=== PATIENT | female | born 1990 | race American Indian/Alaskan Native ===

== ENCOUNTER 2016-09-30 10:46 | Emergency (ER) | payer OTHER ==
[2016-09-30 10:51] VITALS: BP 138/71; PULSE 85; TEMP 97; O2SAT 98
[2016-09-30 10:52] VITALS: BMI 34.9
--- NOTE | 2016-09-30 13:17 | ED PDOC ---
HPI: Eye Injury/Pain Time Seen by Provider: 09/30/16 11:44 Chief Complaint (Nursing): Medical Clearance History Per: Patient (states intermittent redness of the right eye that that progressed over the past few days to finding discharge and crust in the lid this morning. She was told by her work that she needs to be medically cleared before returning to work) History/Exam Limitations: no limitations Onset/Duration Of Symptoms: Days Past Medical History Reviewed: Historical Data, Nursing Documentation, Vital Signs Vital Signs: Last Vital Signs Temp 97 F L 09/30/16 10:51 Pulse 85 09/30/16 10:51 Resp BP 138/71 09/30/16 10:51 Pulse Ox 98 09/30/16 10:51 - Medical History PMH: Bronchitis - Surgical History Surgical History: Tonsillectomy - Family History Family History: States: Unknown Family Hx - Home Medications Home Medications: Ambulatory Orders Medication Instructions Recorded Albuterol 1 puff IH Q4 PRN #1 inh 03/15/14 Azithromycin [Zithromax Z-Marvel] 250 mg PO DAILY #1 packet 03/15/14 Benzonatate [Tessalon Perles] 100 mg PO TID #30 sgl 03/15/14 Amoxicillin/Clavulanate [Augmentin 1 tab PO BID #20 tab 07/19/14 875 MG-125 MG] Sulfamethoxazole/Trimethopri 1 tab PO BID #20 tab 07/19/14 [Bactrim Ds 800 mg-160 mg] oxyCODONE/Acetaminophen [Percocet 1 ea PO Q6H PRN #15 tab 07/19/14 5/325 mg Tab] Azithromycin [Zithromax] 250 mg PO DAILY #6 cap 01/04/15 Codeine Phos/Phenyleph HCl/P 5 ml PO Q6H #100 syr 01/04/15 [Phenergan Vc W/Codeine 120 ml] Famotidine [Pepcid] 20 mg PO Q12 #20 tab 02/07/15 Tobramycin 0.3% [Tobrex 0.3% Ophth 1 drop OD Q4H #1 bottle 05/07/15 Soln] Gentamicin Sulfate [Garamycin 0.3% 1 drop OD QID #1 bottle 09/30/16 Opth] - Allergies Allergies/Adverse Reactions: Allergies Allergy/AdvReac Type Severity Reaction Status Date / Time No Known Allergies Allergy Verified 05/07/15 08:20 Review of Systems ROS Statement: Except As Marked, All Systems Reviewed And Found Negative Constitutional: Negative for: Fever Eyes: Positive for: Conjunctivae Inflammation, Redness Physical Exam - Physical Exam Appears: Positive for: Well, Non-toxic, No Acute Distress Skin: Positive for: Normal Color, Warm, DRY Eye Exam: Positive for: Normal appearance, EOMI, PERRL, Conjunctival injection. Negative for: Periorbital swelling, Periorbital tenderness, Scleral icterus ENT: Positive for: Normal ENT Inspection Neck: Positive for: Normal, Painless ROM Respiratory: Negative for: Accessory Muscle Use Gastrointestinal/Abdominal: Positive for: Normal Exam - ECG O2 Sat by Pulse Oximetry: 98 Disposition - Clinical Impression Clinical Impression: Conjunctivitis - Patient ED Disposition Is Patient to be Admitted: No Doctor Will See Patient In The: Office Counseled Patient/Family Regarding: Diagnosis, Need For Followup, Rx Given - Disposition Referrals: Non [facility] Provider, [Primary Care Provider] - [facility] [Outside] [facility] [Outside] [employer] [Outside] [employer] [place] [Outside] Disposition: Routine/Home Disposition Time: 12:45 Condition: STABLE Prescriptions: Gentamicin Sulfate [Garamycin 0.3% Opth] 1 drop OD QID #1 bottle Instructions: Conjunctivitis (ED) Forms: [employer] (Czech), [facility] ED School/Work Excuse - POA Present On Arrival: None
== END 2016-09-30 13:27 | disposition home or self-care (01) ==
LOC: SUPCPDRO 10:46 → H.ER 10:46
DX: H10.9 Unspecified conjunctivitis (principal)

== ENCOUNTER 2017-09-28 10:38 | Emergency (ER) | payer OTHER ==
[2017-09-28 10:51] VITALS: BMI 35.2
[2017-09-28 10:52] VITALS: O2SAT 100
--- NOTE | 2017-09-28 11:09 | ED PDOC ---
HPI: Dental Pain/Injury Time Seen by Provider: 09/28/17 11:03 History Per: Patient Onset/Duration Of Symptoms: Days (2) Current Symptoms Are (Timing): Still Present Severity: Moderate Pain Scale Rating Of: 4 Quality: Aching Additional Complaint(s): Right upper tooth pain x 2 days. Denies fever or injury Past Medical History Vital Signs: Last Vital Signs Temp 98.2 F 09/28/17 10:50 Pulse 79 09/28/17 10:50 Resp 20 09/28/17 10:50 BP 120/78 09/28/17 10:50 Pulse Ox 100 09/28/17 10:50 - Medical History PMH: Bronchitis - Surgical History Surgical History: Tonsillectomy - Family History Family History: States: Unknown Family Hx - Home Medications Home Medications: Ambulatory Orders Medication Instructions Recorded Albuterol 1 puff IH Q4 PRN #1 inh 03/15/14 Azithromycin [Zithromax Z-Marvel] 250 mg PO DAILY #1 packet 03/15/14 Benzonatate [Tessalon Perles] 100 mg PO TID #30 sgl 03/15/14 Amoxicillin/Clavulanate [Augmentin 1 tab PO BID #20 tab 07/19/14 875 MG-125 MG] Sulfamethoxazole/Trimethopri 1 tab PO BID #20 tab 07/19/14 [Bactrim Ds 800 mg-160 mg] oxyCODONE/Acetaminophen [Percocet 1 ea PO Q6H PRN #15 tab 07/19/14 5/325 mg Tab] Azithromycin [Zithromax] 250 mg PO DAILY #6 cap 01/04/15 Codeine Phos/Phenyleph HCl/P 5 ml PO Q6H #100 syr 01/04/15 [Phenergan Vc W/Codeine 120 ml] Famotidine [Pepcid] 20 mg PO Q12 #20 tab 02/07/15 Tobramycin 0.3% [Tobrex 0.3% Ophth 1 drop OD Q4H #1 bottle 05/07/15 Soln] Gentamicin Sulfate [Garamycin 0.3% 1 drop OD QID #1 bottle 09/30/16 Opth] Penicillin VK [Penicillin VK Tab] 500 mg PO Q6 #28 tab 09/28/17 traMADol [Ultram] 50 mg PO Q8 #10 tab 09/28/17 - Allergies Allergies/Adverse Reactions: Allergies Allergy/AdvReac Type Severity Reaction Status Date / Time No Known Allergies Allergy Verified 05/07/15 08:20 Review of Systems Constitutional: Negative for: Fever ENT: Positive for: Mouth Pain Physical Exam - Physical Exam Appears: Positive for: Non-toxic, No Acute Distress ENT: Positive for: Other (Right upper molar with cavity. No abscess palpated.) - ECG O2 Sat by Pulse Oximetry: 100 Disposition - Clinical Impression Clinical Impression: Toothache - Patient ED Disposition Is Patient to be Admitted: No Counseled Patient/Family Regarding: Diagnosis, Need For Followup, Rx Given - Disposition Referrals: Milton Ramirez DDS [Staff Provider] - Disposition: Routine/Home Disposition Time: 11:08 Condition: FAIR Prescriptions: Penicillin VK [Penicillin VK Tab] 500 mg PO Q6 #28 tab traMADol [Ultram] 50 mg PO Q8 #10 tab Instructions: Dental Pain
[2017-09-28 12:24] VITALS: TEMP 98.8
[2017-09-28 12:25] VITALS: BP 122/60; PULSE 82; RESP 18
== END 2017-09-28 12:25 | disposition home or self-care (01) ==
LOC: H.ER 10:38
DX: K08.89 Other specified disorders of teeth and supporting structures (principal)

== ENCOUNTER 2017-11-29 14:16 | Emergency (ER) | payer OTHER ==
[2017-11-29 14:16] VITALS: BMI 35.2
[2017-11-29 14:31] VITALS: RESP 18; TEMP 98; O2SAT 98
--- NOTE | 2017-11-29 15:39 | ED PDOC ---
HPI: Headache Time Seen by Provider: 11/29/17 14:34 Chief Complaint (Nursing): Headache Chief Complaint (Provider): Headache History Per: Patient History/Exam Limitations: no limitations Onset/Duration Of Symptoms: Other (since 11/15/17) Current Symptoms Are (Timing): Still Present Pain Scale Rating Of: 2 Quality: Sharp Associated Symptoms: Photophobia Additional Complaint(s): 27 year old female presents to the ED for evaluation of intermittent right sided headaches since November 15. Patient rates pain to be 2/10currently but when it worsens, she rates it to be a 8/10 or 9/10. States both light and noise bother her when headache is severe. Notes history of similar headache last year when mother . Since anniversary of her mother's , headaches have returned. Patient took ibuprofen 800mg with temporary relief of symptoms. 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 States headache worsens when she is leaning forward and comes and goes throughout the day. Reports pain is sharp and pulsating. Patient states that she was told she needs corrective lenses but patient never followed up and does not have glasses. Denies fever, chills, neck pain, stiffness, nausea, vomiting, diarrhea, CP, abdominal pain, weakness, numbness, rash, or recent travel. LNMP October 30. PMD: none Past Medical History Reviewed: Historical Data, Nursing Documentation, Vital Signs Vital Signs: Last Vital Signs Temp 98 F 11/29/17 14:28 Pulse 86 11/29/17 14:28 Resp 18 11/29/17 14:28 BP 160/98 H 11/29/17 14:28 Pulse Ox 98 11/29/17 14:28 - Medical History PMH: Bronchitis - Surgical History Surgical History: Tonsillectomy - Family History Family History: States: Unknown Family Hx - Home Medications Home Medications: Ambulatory Orders Medication Instructions Recorded Albuterol 1 puff IH Q4 PRN #1 inh 03/15/14 Azithromycin [Zithromax Z-Marvel] 250 mg PO DAILY #1 packet 03/15/14 Benzonatate [Tessalon Perles] 100 mg PO TID #30 sgl 03/15/14 Amoxicillin/Clavulanate [Augmentin 1 tab PO BID #20 tab 07/19/14 875 MG-125 MG] Sulfamethoxazole/Trimethopri 1 tab PO BID #20 tab 07/19/14 [Bactrim Ds 800 mg-160 mg] oxyCODONE/Acetaminophen [Percocet 1 ea PO Q6H PRN #15 tab 07/19/14 5/325 mg Tab] Azithromycin [Zithromax] 250 mg PO DAILY #6 cap 01/04/15 Codeine Phos/Phenyleph HCl/P 5 ml PO Q6H #100 syr 01/04/15 [Phenergan Vc W/Codeine 120 ml] Famotidine [Pepcid] 20 mg PO Q12 #20 tab 02/07/15 Tobramycin 0.3% [Tobrex 0.3% Ophth 1 drop OD Q4H #1 bottle 05/07/15 Soln] Gentamicin Sulfate [Garamycin 0.3% 1 drop OD QID #1 bottle 09/30/16 Opth] Penicillin VK [Penicillin VK Tab] 500 mg PO Q6 #28 tab 09/28/17 traMADol [Ultram] 50 mg PO Q8 #10 tab 09/28/17 Naproxen 500 mg PO BID PRN #20 tab 11/29/17 - Allergies Allergies/Adverse Reactions: Allergies Allergy/AdvReac Type Severity Reaction Status Date / Time No Known Allergies Allergy Verified 05/07/15 08:20 Review of Systems ROS Statement: Except As Marked, All Systems Reviewed And Found Negative Constitutional: Negative for: Fever, Chills Cardiovascular: Negative for: Chest Pain Gastrointestinal: Negative for: Nausea, Vomiting, Abdominal Pain, Diarrhea Musculoskeletal: Negative for: Neck Pain (or stiffness) Skin: Negative for: Rash Neurological: Positive for: Headache. Negative for: Weakness, Numbness Physical Exam - Reviewed Nursing Documentation Reviewed: Yes Vital Signs Reviewed: Yes - Physical Exam Comments: GENERAL APPEARANCE: Patient is awake, alert, oriented x 3, in no acute distress. Resting comfortably; on cell phone. SKIN: Warm, dry; (-) cyanosis; (-) rash. HEAD: (-) scalp swelling or tenderness, (-) temporal artery tenderness. EYES: (-) conjunctival pallor, (-) scleral icterus. ENMT: TMS: nonbulging, nonerythematous. Nares patent, (-) rhinorrhea. Pharynx: clear, uvula midline (-) erythema (-) exudate. (-) sinus tenderness; mucous membranes are moist. NECK: Supple, FROM (-) tenderness, (-) stiffness, (-) meningismus, (-) lymphadenopathy. CHEST AND RESPIRATORY: (-) rales, (-) rhonchi, (-) wheezes; breath sounds equal bilaterally. Respirations even and nonlabored. HEART AND CARDIOVASCULAR: (-) irregularity ABDOMEN AND GI: Soft; (-) tenderness (-) guarding (-) distention. EXTREMITIES: (-) deformity. NEURO AND PSYCH: Mental status as above. 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 Strength symmetric. Gait: steady. Speech: clear. - Laboratory Results Urine POC: Negative - ECG O2 Sat by Pulse Oximetry: 98 (RA) Pulse Ox Interpretation: Normal Medical Decision Making Medical Decision Making: Initial Impression: Headache, to consider migraine Initial Plan: --Head CT --ED urine --Reglan 10mg PO --Tylenol 650mg PO --Re-evaluation Upreg: negative 16:[address] FINDINGS: HEMORRHAGE: No intracranial hemorrhage. BRAIN: No mass effect or edema. No atrophy or chronic microvascular ischemic changes. Prominent bilateral basal ganglia perivascular spaces. VENTRICLES: Unremarkable. No hydrocephalus. CALVARIUM: Unremarkable. PARANASAL SINUSES: Unremarkable as visualized. No significant inflammatory changes. MASTOID AIR CELLS: Unremarkable as visualized. No inflammatory changes. OTHER FINDINGS: None. IMPRESSION: No acute intracranial pathology. In light of negative Head CT, Toradol 30mg IM ordered for additional pain control. 1710 Repeat BP: 140/82 On re-evaluation, patient reports improvement of symptoms, denies any headache at present. On exam, patient remains AAOx3, in no acute distress. Lungs clear to auscultation, cardiac RRR, repeat neuro exam shows no focal findings. Vitals stable. Lab/Diagnostic results d/w the patient in great detail. Diagnosis of headache, to consider migraine d/w the patient. Based on history, exam and diagnostic results, plan will be for outpatient follow up with pmd/clinic/neurology. Patient instructed to follow-up with pmd / referral provided / the clinic in 1- 2 days without fail. Advised to take medication as prescribed. Return to the emergency room at any time for any new or worsening symptoms. Patient states she fully agrees with and understands discharge instructions. States that she agrees with the plan and disposition. Verbalized and repeated discharge instructions and plan. I have given the patient opportunity to ask any additional questions. Scribe Attestation: Documented by Syd Strong acting as a scribe for Sury FINCH. Provider Scribe Attestation: All medical record entries made by the Scribe were at my direction and personally dictated by me. I have reviewed the chart and agree that the record accurately reflects my personal performance of the history, physical exam, medical decision making, and the department course for this patient. I have also personally directed, reviewed, and agree with the discharge instructions and disposition. Disposition - Clinical Impression Clinical Impression: Headache, Migraine - Patient ED Disposition Is Patient to be Admitted: No Counseled Patient/Family Regarding: Studies Performed, Diagnosis, Need For Followup, Rx Given - Disposition Referrals: [facility] [Outside] Elizabeth Christianson MD [Medical Doctor] - Disposition: Routine/Home Disposition Time: 17:10 Condition: STABLE Additional Instructions: CALL INSURANCE COMPANY TO HAVE A PRIMARY DOCTOR ASSIGNED FOR FURTHER EVALUATION/ CARE. The emergency medical care you received today was directed at your acute symptoms. If you were prescribed any medication, please fill it and take as directed. It may take several days for your symptoms to resolve. Return to the Emergency Department if your symptoms worsen, do not improve, or if you have any other problems. Please contact your doctor in 2 days for re-evaluation and follow up / or call one of the physicians/clinics you have been referred to that are listed on the Patient Visit Information form that is included in your discharge packet. Bring any paperwork you were given at discharge with you along with any medications you are taking to your follow up visit. Our treatment cannot replace ongoing medical care by a primary care provider (PCP) outside of the emergency department. Prescriptions: Naproxen 500 mg PO BID PRN #20 tab PRN Reason: Pain, Moderate (4-7) Instructions: Headache, Adult, Migraine Headache (DC) Forms: [facility] (Mongolian) Print Language: FRENCH - POA Present On Arrival: None
--- NOTE | 2017-11-29 16:04 | CT ---
Date of service: 11/29/2017 PROCEDURE: CT HEAD WITHOUT CONTRAST. HISTORY: right sided headaches, recurrent COMPARISON: None available. TECHNIQUE: Axial computed tomography images were obtained through the head/brain without intravenous contrast. Radiation dose: Total exam DLP = 829.6 mGy-cm. This CT exam was performed using one or more of the following dose reduction techniques: Automated exposure control, adjustment of the mA and/or kV according to patient size, and/or use of iterative reconstruction technique. FINDINGS: HEMORRHAGE: No intracranial hemorrhage. BRAIN: No mass effect or edema. No atrophy or chronic microvascular ischemic changes. Prominent bilateral basal ganglia perivascular spaces. VENTRICLES: Unremarkable. No hydrocephalus. CALVARIUM: Unremarkable. PARANASAL SINUSES: Unremarkable as visualized. No significant inflammatory changes. MASTOID AIR CELLS: Unremarkable as visualized. No inflammatory changes. OTHER FINDINGS: None. IMPRESSION: No acute intracranial pathology.
[2017-11-29 18:42] VITALS: BP 128/78; PULSE 76
== END 2017-11-29 17:45 | disposition home or self-care (01) ==
LOC: H.ER 14:16
DX: G43.909 Migraine, unspecified, not intractable, without status migrainosus (principal); R51 Headache
CPT/HCPCS: 70450; 81025; 96372; 99285; J1885

== ENCOUNTER 2017-12-23 15:29 | Emergency (ER) | payer OTHER ==
[2017-12-23 15:30] VITALS: BMI 35.2
[2017-12-23 15:50] VITALS: BP 121/74; PULSE 84; RESP 18; TEMP 99.2; O2SAT 98
[2017-12-23] MEDS ORDERED: Lidocaine 2% Inj (20ml) INFIL ONE (16:02)
[2017-12-23] MEDS ORDERED: Lidocaine PF 2% (5 ml) Inj (For Cardiac Arrhy) ONE (16:08)
--- NOTE | 2017-12-23 16:08 | ED PDOC ---
HPI: Skin/Bite Injury Time Seen by Provider: 12/23/17 15:55 Chief Complaint (Nursing): Abnormal Skin Integrity Chief Complaint (Provider): Abscess History Per: Patient History/Exam Limitations: no limitations Onset/Duration Of Symptoms: Days (x4) Current Symptoms Are (Timing): Still Present Additional Complaint(s): 27 year old female presents to the ED for evaluation of an abscess to the left axillary region for the past 4 days. Patient states she has a history of reoccurring abscesses to the area, and has been doing hot soaks without any relief. Otherwise denies fever and chills. PMD: none provided Past Medical History Reviewed: Historical Data, Nursing Documentation, Vital Signs Vital Signs: Last Vital Signs Temp 99.2 F 12/23/17 15:48 Pulse 84 12/23/17 15:48 Resp 18 12/23/17 15:48 BP 121/74 12/23/17 15:48 Pulse Ox 98 12/23/17 15:48 - Medical History PMH: Bronchitis Denies: Chronic Kidney Disease Other PMH: hx of abscesses - Surgical History Surgical History: Tonsillectomy Other surgeries: I&D x2 - Family History Family History: States: Unknown Family Hx - Social History Current smoker - smoking cessation education provided: Yes Alcohol: Social Drugs: Denies - Home Medications Home Medications: Ambulatory Orders Medication Instructions Recorded Albuterol 1 puff IH Q4 PRN #1 inh 03/15/14 Azithromycin [Zithromax Z-Marvel] 250 mg PO DAILY #1 packet 03/15/14 Benzonatate [Tessalon Perles] 100 mg PO TID #30 sgl 03/15/14 Amoxicillin/Clavulanate [Augmentin 1 tab PO BID #20 tab 07/19/14 875 MG-125 MG] Sulfamethoxazole/Trimethopri 1 tab PO BID #20 tab 07/19/14 [Bactrim Ds 800 mg-160 mg] oxyCODONE/Acetaminophen [Percocet 1 ea PO Q6H PRN #15 tab 07/19/14 5/325 mg Tab] Azithromycin [Zithromax] 250 mg PO DAILY #6 cap 01/04/15 Codeine Phos/Phenyleph HCl/P 5 ml PO Q6H #100 syr 01/04/15 [Phenergan Vc W/Codeine 120 ml] Famotidine [Pepcid] 20 mg PO Q12 #20 tab 02/07/15 Tobramycin 0.3% [Tobrex 0.3% Ophth 1 drop OD Q4H #1 bottle 05/07/15 Soln] Gentamicin Sulfate [Garamycin 0.3% 1 drop OD QID #1 bottle 09/30/16 Opth] Penicillin VK [Penicillin VK Tab] 500 mg PO Q6 #28 tab 09/28/17 traMADol [Ultram] 50 mg PO Q8 #10 tab 09/28/17 Naproxen 500 mg PO BID PRN #20 tab 11/29/17 Cephalexin [Keflex] 500 mg PO TID #21 capsule 12/23/17 Naproxen 375 mg PO Q8 PRN #21 tablet 12/23/17 Sulfamethoxazole/Trimethoprim 1 tab PO BID #14 tab 12/23/17 [Bactrim DS 800 mg-160 mg] - Allergies Allergies/Adverse Reactions: Allergies Allergy/AdvReac Type Severity Reaction Status Date / Time No Known Allergies Allergy Verified 05/07/15 08:20 Review of Systems ROS Statement: Except As Marked, All Systems Reviewed And Found Negative Constitutional: Negative for: Fever, Chills Skin: Positive for: Other (abscess to left axillary region) Physical Exam - Reviewed Nursing Documentation Reviewed: Yes Vital Signs Reviewed: Yes - Physical Exam Appears: Positive for: No Acute Distress Head Exam: Positive for: ATRAUMATIC, NORMOCEPHALIC Skin: Positive for: Warm, Dry Eye Exam: Positive for: Normal appearance Cardiovascular/Chest: Positive for: Regular Rate, Rhythm Respiratory: Positive for: Normal Breath Sounds. Negative for: Respiratory Distress Extremity: Positive for: Other (3.5cm abscess with fluctuance to left axillary region with no surrounding erythema) - ECG O2 Sat by Pulse Oximetry: 98 (RA) Pulse Ox Interpretation: Normal Medical Decision Making Medical Decision Making: Time: 1601 Initial Impression: abscess Initial Plan: --Lidocaine 2% 4ml INFIL around abscess --Toradol 30mg IM 1629 PAElvie at bedside performing I&D. See procedure note. --- Scribe Attestation: Documented by Jennifer Proctor, acting as a scribe for Anabela Carey PA-C. Provider Scribe Attestation: All medical record entries made by the Scribe were at my direction and personally dictated by me. I have reviewed the chart and agree that the record accurately reflects my personal performance of the history, physical exam, medical decision making, and the department course for this patient. I have also personally directed, reviewed, and agree with the discharge instructions and disposition. Disposition - Clinical Impression Clinical Impression: Abscess - Patient ED Disposition Is Patient to be Admitted: No - Disposition Referrals: Wei Nicholson MD [Staff Provider] - Disposition: Routine/Home Disposition Time: 16:53 Condition: FAIR Prescriptions: Cephalexin [Keflex] 500 mg PO TID #21 capsule Naproxen 375 mg PO Q8 PRN #21 tablet PRN Reason: Pain, Moderate (4-7) Sulfamethoxazole/Trimethoprim [Bactrim DS 800 mg-160 mg] 1 tab PO BID #14 tab Instructions: Boil (DC) Forms: [facility] ED School/Work Excuse Procedures - Time-Out Type of Procedure: incision and drainage Site of Procedure: left axillary Correct Patient (with visual ID + MR# on ID Band): Yes Correct Procedure: Yes Correct Site Marked: Yes PA/Tech: Anabela Carey PA-C - Incision and Drainage Site: left axillary region Blade Size: 15 I & D Procedure: betadine prep, gauze wick placed (one 1/2 inch) Progress: Patient tolerated procedure well with no complications. Educated on wound care and advised to return if complications occur.
== END 2017-12-23 17:32 | disposition home or self-care (01) ==
LOC: H.ER 15:29
DX: L02.412 Cutaneous abscess of left axilla (principal)
CPT/HCPCS: 10060; 81025; 96372; 99282; J1885

== ENCOUNTER 2017-12-27 15:41 | Emergency (ER) | payer OTHER ==
[2017-12-27 15:42] VITALS: BMI 35.2
[2017-12-27 16:19] VITALS: BP 127/76; PULSE 85; RESP 16; TEMP 98.7; O2SAT 99
--- NOTE | 2017-12-27 17:27 | ED PDOC ---
HPI: Wound Care - HPI Time Seen by Provider: 12/27/17 16:40 Chief Complaint (Nursing): Wound Check Chief Complaint (Provider): WOund check - Left axilla History Per: Patient Exam Limitations: no limitations Quality Of Symptoms: Painful Severity: Mild Additional Complaint(s): 27 yo female with no medical problems presents for packing removal. Pt states she had I and D 4 days ago. Pt reports improvement of pain. Pt has appointment with surgeon in 2 days. No fever/chills Past Medical History Reviewed: Historical Data, Nursing Documentation, Vital Signs Vital Signs: Last Vital Signs Temp 98.7 F 12/27/17 16:17 Pulse 85 12/27/17 16:17 Resp 16 12/27/17 16:17 BP 127/76 12/27/17 16:17 Pulse Ox 99 12/27/17 16:17 - Medical History PMH: Bronchitis Denies: Chronic Kidney Disease - Surgical History Surgical History: Tonsillectomy - Family History Family History: States: Unknown Family Hx - Living Arrangements Living Arrangements: With Family - Social History Current smoker - smoking cessation education provided: No - Home Medications Home Medications: Ambulatory Orders Medication Instructions Recorded Albuterol 1 puff IH Q4 PRN #1 inh 03/15/14 Azithromycin [Zithromax Z-Marvel] 250 mg PO DAILY #1 packet 03/15/14 Benzonatate [Tessalon Perles] 100 mg PO TID #30 sgl 03/15/14 Amoxicillin/Clavulanate [Augmentin 1 tab PO BID #20 tab 07/19/14 875 MG-125 MG] Sulfamethoxazole/Trimethopri 1 tab PO BID #20 tab 07/19/14 [Bactrim Ds 800 mg-160 mg] oxyCODONE/Acetaminophen [Percocet 1 ea PO Q6H PRN #15 tab 07/19/14 5/325 mg Tab] Azithromycin [Zithromax] 250 mg PO DAILY #6 cap 01/04/15 Codeine Phos/Phenyleph HCl/P 5 ml PO Q6H #100 syr 01/04/15 [Phenergan Vc W/Codeine 120 ml] Famotidine [Pepcid] 20 mg PO Q12 #20 tab 02/07/15 Tobramycin 0.3% [Tobrex 0.3% Ophth 1 drop OD Q4H #1 bottle 05/07/15 Soln] Gentamicin Sulfate [Garamycin 0.3% 1 drop OD QID #1 bottle 09/30/16 Opt] Penicillin VK [Penicillin VK Tab] 500 mg PO Q6 #28 tab 09/28/17 traMADol [Ultram] 50 mg PO Q8 #10 tab 09/28/17 Naproxen 500 mg PO BID PRN #20 tab 11/29/17 Cephalexin [Keflex] 500 mg PO TID #21 capsule 12/23/17 Naproxen 375 mg PO Q8 PRN #21 tablet 12/23/17 Sulfamethoxazole/Trimethoprim 1 tab PO BID #14 tab 12/23/17 [Bactrim DS 800 mg-160 mg] - Allergies Allergies/Adverse Reactions: Allergies Allergy/AdvReac Type Severity Reaction Status Date / Time No Known Allergies Allergy Verified 05/07/15 08:20 Review of Systems ROS Statement: Except As Marked, All Systems Reviewed And Found Negative Constitutional: Negative for: Fever, Chills Skin: Positive for: Other Neurological: Negative for: Weakness, Numbness Physical Exam - Reviewed Nursing Documentation Reviewed: Yes Vital Signs Reviewed: Yes - Physical Exam Appears: Positive for: Well, Non-toxic, No Acute Distress Head Exam: Positive for: ATRAUMATIC, NORMAL INSPECTION, NORMOCEPHALIC Skin: Positive for: Warm. Negative for: Normal Color (Packing removed from left axilla, no active drainage, granulated tissue seen ) Eye Exam: Positive for: Normal appearance ENT: Positive for: Normal ENT Inspection Neck: Positive for: Normal Cardiovascular/Chest: Negative for: Bradycardia, Tachycardia Respiratory: Negative for: Accessory Muscle Use, Respiratory Distress Back: Positive for: Normal Inspection Extremity: Positive for: Normal ROM Neurologic/Psych: Positive for: Alert, Oriented - ECG O2 Sat by Pulse Oximetry: 99 Medical Decision Making Medical Decision Making: Pakcing removed, irrigated, antibiotic ointment and bandage applied. Disposition - Clinical Impression Clinical Impression: Abscess packing removal - Patient ED Disposition Is Patient to be Admitted: No Counseled Patient/Family Regarding: Diagnosis, Need For Followup - Disposition Disposition: Routine/Home Disposition Time: 17:29 Condition: GOOD
== END 2017-12-27 17:53 | disposition home or self-care (01) ==
LOC: H.ER 15:41
DX: Z48.01 Encounter for change or removal of surgical wound dressing (principal)

== ENCOUNTER 2018-07-27 15:19 | Emergency (ER) | payer OTHER ==
[2018-07-27 15:20] VITALS: BMI 35.2
[2018-07-27 15:36] VITALS: O2SAT 100
--- NOTE | 2018-07-27 16:35 | ED PDOC ---
HPI: General Adult Time Seen by Provider: 07/27/18 15:33 Chief Complaint (Nursing): Breast Problem Chief Complaint (Provider): Right Breast Pain History Per: Patient History/Exam Limitations: no limitations Onset/Duration Of Symptoms: Days (x1 week) Current Symptoms Are (Timing): Still Present Additional Complaint(s): 27 year old female presents to the ED for evaluation of right breast pain. Patient states she had a normal menstrual cycle last week and since has had right breast pain primarily superior to the nipple, worse with movements such as laying down. She reports a family history of breast cancer so was concerned for that as well as a possible infection secondary to her hidradenitis suppurativa in the right armpit. Otherwise, denies nipple drainage, fever, chills, and being sexually active. Past Medical History Reviewed: Historical Data, Nursing Documentation, Vital Signs Vital Signs: Last Vital Signs Temp 98.9 F 07/27/18 15:35 Pulse 70 07/27/18 15:35 Resp 15 07/27/18 15:35 BP 151/87 H 07/27/18 15:35 Pulse Ox 100 07/27/18 15:35 Primary Care Provider: FAMILY PROVIDER,NO - Medical History PMH: Bronchitis Denies: Chronic Kidney Disease Other PMH: Hidradenitis suppurativa to right armpit - Surgical History Surgical History: Tonsillectomy - Family History Family History: States: Other Other Family History: breast cancer - Home Medications Home Medications: Ambulatory Orders Medication Instructions Recorded Albuterol 1 puff IH Q4 PRN #1 inh 03/15/14 Azithromycin [Zithromax Z-Marvel] 250 mg PO DAILY #1 packet 03/15/14 Benzonatate [Tessalon Perles] 100 mg PO TID #30 sgl 03/15/14 Amoxicillin/Clavulanate [Augmentin 1 tab PO BID #20 tab 07/19/14 875 MG-125 MG] Sulfamethoxazole/Trimethopri 1 tab PO BID #20 tab 07/19/14 [Bactrim Ds 800 mg-160 mg] oxyCODONE/Acetaminophen [Percocet 1 ea PO Q6H PRN #15 tab 07/19/14 5/325 mg Tab] Azithromycin [Zithromax] 250 mg PO DAILY #6 cap 01/04/15 Codeine Phos/Phenyleph HCl/P 5 ml PO Q6H #100 syr 01/04/15 [Phenergan Vc W/Codeine 120 ml] Famotidine [Pepcid] 20 mg PO Q12 #20 tab 02/07/15 Tobramycin 0.3% [Tobrex 0.3% Ophth 1 drop OD Q4H #1 bottle 05/07/15 Soln] Gentamicin Sulfate [Garamycin 0.3% 1 drop OD QID #1 bottle 09/30/16 Opth] Penicillin VK [Penicillin VK Tab] 500 mg PO Q6 #28 tab 09/28/17 traMADol [Ultram] 50 mg PO Q8 #10 tab 09/28/17 Naproxen 500 mg PO BID PRN #20 tab 11/29/17 Cephalexin [Keflex] 500 mg PO TID #21 capsule 12/23/17 Naproxen 375 mg PO Q8 PRN #21 tablet 12/23/17 Sulfamethoxazole/Trimethoprim 1 tab PO BID #14 tab 12/23/17 [Bactrim DS 800 mg-160 mg] - Allergies Allergies/Adverse Reactions: Allergies Allergy/AdvReac Type Severity Reaction Status Date / Time No Known Allergies Allergy Verified 07/27/18 15:36 Review of Systems ROS Statement: Except As Marked, All Systems Reviewed And Found Negative Constitutional: Negative for: Fever, Chills Musculoskeletal: Positive for: Other (right breast pain superior to nipple worse with movement like laying on side, but no nipple discharge) Physical Exam - Reviewed Nursing Documentation Reviewed: Yes Vital Signs Reviewed: Yes - Physical Exam Appears: Positive for: Non-toxic, No Acute Distress Head Exam: Positive for: ATRAUMATIC Skin: Positive for: Normal Color, Warm Eye Exam: Positive for: Normal appearance Neck: Positive for: Normal Cardiovascular/Chest: Negative for: Bradycardia, Tachycardia Respiratory: Negative for: Accessory Muscle Use, Respiratory Distress Neurological/Psych: Positive for: Awake, Alert, Oriented Comments: Breast exam: Right: tenderness to 12 o'clock position with no definitive palpable masses, however area feels fibrotic. No nipple drainage or Peau d'orange. Bilateral: symmetric appearance with arm elevation - ECG O2 Sat by Pulse Oximetry: 100 (RA) Pulse Ox Interpretation: Normal Medical Decision Making Medical Decision Making: Time: 1558 Initial Impression: right breast pain Initial Plan: --US right breast 1811 US FINDINGS: RIGHT BREAST: Cyst(s): None Breast mass: None Dilated ducts: None Parenchymal distortion: None Skin thickening or subcutaneous abnormalities: None Morphologically, unremarkable lymph node(s) 0.7 x 1.8 cm. IMPRESSION: No sonographic evidence of malignancy. BIRADS: BIRADS 1 (negative). Patient management should be based on findings on physical examination in the absence of either ultrasound and/or mammographic correlate. Pt states she has an BAR EXAMINER to follow-up with regarding Mammogram. Scribe Attestation: Documented by Jennifer Proctor, acting as a scribe for Daya Hernandez PA-C Provider Scribe Attestation: All medical record entries made by the Scribe were at my direction and personally dictated by me. I have reviewed the chart and agree that the record accurately reflects my personal performance of the history, physical exam, medical decision making, and the department course for this patient. I have also personally directed, reviewed, and agree with the discharge instructions and disposition. Disposition - Clinical Impression Clinical Impression: Pain of breast - Patient ED Disposition Is Patient to be Admitted: No Counseled Patient/Family Regarding: Diagnosis, Need For Followup - Disposition Disposition: Routine/Home Disposition Time: 18:36 Condition: GOOD Instructions: Common Breast Problems Forms: IP Ghost[employer] (Kyrgyz)
--- NOTE | 2018-07-27 18:15 | US ---
Date of service: 07/27/2018 HISTORY: Right breast pain and tenderness. Anatomic area of interest: 12-6 o'clock periareolar region. TECHNIQUE: Sonographic evaluation of both breast was performed. FINDINGS: RIGHT BREAST: Cyst(s): None Breast mass: None Dilated ducts: None Parenchymal distortion: None Skin thickening or subcutaneous abnormalities: None Morphologically, unremarkable lymph node(s) 0.7 x 1.8 cm. IMPRESSION: No sonographic evidence of malignancy. BIRADS: BIRADS 1 (negative). Patient management should be based on findings on physical examination in the absence of either ultrasound and/or mammographic correlate.
[2018-07-27 18:41] VITALS: BP 144/68; PULSE 64; RESP 16; TEMP 98.4
== END 2018-07-27 18:45 | disposition home or self-care (01) ==
LOC: H.ER 15:19
DX: N64.4 Mastodynia (principal); Z80.3 Family history of malignant neoplasm of breast